=== PATIENT | male | born 1980 | race Two or more races ===

== ENCOUNTER 2021-01-06 21:45 | Emergency (ER) | payer SELFPAY ==
[~2021-01-06] VITALS: Ht 170.2 cm; Wt 74.0 kg
--- NOTE | 2021-01-06 21:59 | PHYS DOC ---
General Adult HPI: HPI: ".. I got covid.. back on December 25... and I am not over it yet.. dizzy, fatigued.. I get short of breath.. still coughing all the time.. ".." My seems to be off.. when I move quickly...My got COVID about the same time as I did...but she is all well.. and I am not..." Patient is a 40 year old male who presents with above hx and complaints of cough, wheezing, dyspnea, fatigue, malaise, arthralgia, dizziness, decreased hearing, and still has some loss of taste. Patient denies any recent travel. Patient denies any other specific ill contacts other than his . Has been normally healthy in the past. Patient's cough does not produce sputum and if it is produced it is scant and clear. Patient denies any fever or chills currently. No history coagulopathy with him or family members. Review of Systems: Review of Systems: Constitutional: Denies fever or chills Eyes: Denies change in visual acuity HENT: History of nasal congestion, disruption of taste and some hearing Respiratory: History of cough or shortness of breath Cardiovascular: Denies chest pain or edema GI: Denies abdominal pain, nausea, vomiting, bloody stools or diarrhea : Denies dysuria Musculoskeletal: Generalized myalgia arthralgia and fatigue Integument: Denies rash Neurologic: Denies headache, focal weakness or sensory changes. Dizziness Endocrine: Denies polyuria or polydipsia Lymphatic: Denies swollen glands Psychiatric: Denies depression or anxiety Family History: Family History: 's diagnosis codes same time he was Current Medications: Current Meds: See nursing for home meds Allergies: Allergies: No known drug allergies Physical Exam: PE: Constitutional: Well developed, well nourished, mild distress, non-toxic appearance. [] HENT: Normocephalic, atraumatic, bilateral external ears normal, oropharynx moist, no oral exudates, nose: Turbinates and clear rhinorrhea. TMs normal Eyes: PERRLA, EOMI, conjunctiva normal, no discharge. [] Neck: Normal range of motion, no tenderness, supple, no stridor. [] Cardiovascular: Bradycardia heart rate regular rhythm, no murmur [] Lungs & Thorax: Bilateral breath sounds equal apex scattered wheezes auscultation []. There is some right middle lobe crackle clear deep breaths and cough Abdomen: Bowel sounds normal, soft, no tenderness, no masses, no pulsatile masses. [] Skin: Warm, dry, no erythema, no rash. [] Back: No tenderness, no CVA tenderness. [] Extremities: No tenderness, no cyanosis, no clubbing, ROM intact, no edema. [] No cording appreciated in legs Neurologic: Alert and oriented X 3, normal motor function, normal sensory function, no focal deficits noted. [] Psychologic: Affect depressed, judgement normal, mood normal. [] EKG: EKG: [] Radiology/Procedures: Radiology/Procedures: [][place] [address] IMAGING REPORT Signed PATIENT: GM KOHLI ACCOUNT: [id number] : 1980 LOCATION: ER AGE: 40 SEX: M EXAM STATUS: REG ER ORD. PHYSICIAN: ARSLAN CAMARGO MD REASON: cp, COVID+ DECEMBER 21, 2020 PROCEDURE: PORTABLE CHEST 1V INDICATION: Reason: cp, COVID+ DECEMBER 21, 2020 / Spl. Instructions: / History: COMPARISON: None. FINDINGS: Single view of chest obtained. Mild elevation of the right hemidiaphragm. Cardiac silhouette is unremarkable. Mild hazy nodular opacity within the right lung with linear opacities at left lung. IMPRESSION: * Mild hazy nodular opacity in the right lung as well as linear opacities in the left lung. Could be secondary to atelectasis or small foci of infiltrate. Electronically signed by: Betty Segura MD (01/07/2021 1:05 AM) [id number] DICTATED AND SIGNED BY: BETTY SEGURA MD DATE: 01/07/21 0104 CC: ARSLAN CAMARGO MD; PCP,NO ~MTH0 0 Heart Score: C/O Chest Pain: No HEART Score for Chest Pain: HEART Score for Chest Pain Response (Comments) Value History Slighlty/Non-Suspicious 0 ECG Normal 0 Age < 45 0 Risk Factors 1 or 2 Risk Factors 1 Troponin < Normal Limit 0 Total 1 Risk Factors: Risk Factors: DM, Current or recent (<one month) smoker, HTN, HLP, family history of CAD, obesity. Risk Scores: Score 0 - 3: 2.5% MACE over next 6 weeks - Discharge Home Score 4 - 6: 20.3% MACE over next 6 weeks - Admit for Clinical Observation Score 7 - 10: 72.7% MACE over next 6 weeks - Early Invasive Strategies Course & Med Decision Making: Course & Med Decision Making Pertinent Labs and Imaging studies reviewed. (See chart for details) Patient continue deep breathing exercises. Must keep lungs expanded. Will start on Zithromax 250 mg a day for 5 days. Use MDI 2 puffs 4 times a day. Take Tylenol and ibuprofen for discomfort. We will do a short course of Eliquis 5 mg twice a day. Follow-up primary care. 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 Do recommend patient get Covid vaccination once he is over the sequela of Covid. Must follow up with primary. Impression: 1. Hx. of COVID- Dx6/ 2. 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 Departure Departure: Scripts Azithromycin (ZITHROMAX) 250 Mg Tablet 250 MG PO DAILY for ANTI-BIOTIC for 5 Days, #5 TAB 0 Refills Prov: ARSLAN CAMARGO MD 01/07/21 Apixaban (ELIQUIS) 5 Mg Tablet 5 MG PO BID for post covid for 10 Days, #20 TAB Prov: ARSLAN CAMARGO MD 01/07/21 Sigifredo Disclaimer This chart was dictated in whole or in part using Voice Recognition software in a busy, high-work load, and often noisy Emergency Department environment. It may contain unintended and wholly unrecognized errors or omissions. ARSLAN CAMARGO MD Jan 06, 2021 21:59
[2021-01-06] MEDS ORDERED: ALBUTEROL SULFATE 8GM INHALER. INH ONE (22:00)
[2021-01-06] MEDS ORDERED: predniSONE 10 MG TABLET. PO ONE ×2 (22:00→23:15)
[2021-01-06] MEDS ORDERED: ACETAMINOPHEN 500 MG TABLET PO ONE (23:15)
[2021-01-06] MEDS ORDERED: APIXABAN 5 MG TABLET. PO ONE (23:15)
[2021-01-06] MEDS ORDERED: AZITHROMYCIN 250 MG TABLET. PO ONE (23:15)
[2021-01-06] MEDS ORDERED: IV RINGERS SOLUTION,LACTATED 1,000 ML IV SCH (23:15)
--- NOTE | 2021-01-06 23:43 | EKG ---
[address] [address] Test Date: 2021-01-06 Test Time: 23:20:47 Pat Name: GM KOHLI Department: Room: Gender: M Continuous Process [employer]: : 1980 Requested By: ARSLAN CAMARGO Order Number: [id number] Reading MD: Measurements Intervals [place] Rate: 53 P: 0 DC: 154 QRS: 24 QRSD: 94 T: 9 QT: 402 QTc: 379 Interpretive Statements SINUS RHYTHM QRS(T) CONTOUR ABNORMALITY CONSISTENT WITH INFERIOR INFARCT PROBABLY OLD ABNORMAL ECG RI6.02 No previous ECG available for comparison
[2021-01-07 00:08] LABS: HEMOGLOBIN ISTAT 14.6 gm/dL
[2021-01-07 00:23] LABS: BASO % 0 % (0-3); EOS # 0.2 x10^3/uL (0.0-0.7); EOS % 3 % (0-3); HEMATOCRIT 39.8 % (39.0-53.0); LYMPH % 37 % (24-48); MEAN CORPUSCULAR HEMOGLOBIN 32 pg (25-35); MEAN CORPUSCULAR HGB CONC 35 g/dL (31-37); MEAN CORPUSCULAR VOLUME 90 fL (79-100); MONO # 0.5 x10^3/uL (0.0-1.1); MONO % 9 % (0-9); NEUT # 2.7 x10^3uL (1.8-7.7); NEUT % 51 % (31-73); PLATELET COUNT 320 x10^3/uL (140-400); RED BLOOD COUNT 4.42 x10^6/uL (4.30-5.70); WHITE BLOOD COUNT 5.3 x10^3/uL (4.0-11.0)
[2021-01-07 00:26] LABS: ALBUMIN 3.5 g/dL (3.4-5.0); DIRECT BILIRUBIN 0.1 mg/dL (0.0-0.2); MAGNESIUM 2.3 mg/dL (1.8-2.4); TOTAL BILIRUBIN 0.5 mg/dL (0.2-1.0); TOTAL PROTEIN 6.9 g/dL (6.4-8.2)
--- NOTE | 2021-01-07 01:07 | RAD ---
INDICATION: Reason: cp, COVID+ DECEMBER 21, 2020 / Spl. Instructions: / History: COMPARISON: None. FINDINGS: Single view of chest obtained. Mild elevation of the right hemidiaphragm. Cardiac silhouette is unremarkable. Mild hazy nodular opacity within the right lung with linear opacities at left lung. IMPRESSION: * Mild hazy nodular opacity in the right lung as well as linear opacities in the left lung. Could be secondary to atelectasis or small foci of infiltrate. Electronically signed by: Chito Segura MD (01/07/2021 1:05 AM) [id number]
[2021-01-07] MEDS ORDERED: AZIT250T PO (01:22)
[2021-01-07] MEDS ORDERED: APIX5TAB3 PO (01:22)
[2021-01-07 01:45] VITALS: BP 123/58
== END 2021-01-07 01:55 | disposition home or self-care (01) ==
LOC: ER 21:45
DX: T88.1XXA Other complications following immunization, not elsewhere classified, initial encounter (principal); R07.9 Chest pain, unspecified; R42 Dizziness and giddiness; Z23 Encounter for immunization
CPT/HCPCS: 36415; 71045; 80047; 80076; 82550; 83735; 83880; 84484; 85025; 93005; 94640; 96360; 99285; J7120; J7512; 85610; 85730; 94664